=== PATIENT | male | born 1990 | race Caucasian/White ===

== ENCOUNTER → 2017-12-02 | Outpatient (CLI) | payer OTHER | LOC: LAB.O 19:31 | PROVIDERS: ATTEND Emergency Medicine | DX: R10.9 Unspecified abdominal pain (principal) ==

== ENCOUNTER → 2017-12-23 | Outpatient (CLI) | payer OTHER ==
--- NOTE | 2017-12-23 15:06 | RAD ---
EXAM DESCRIPTION: Knee,Right Complete CLINICAL HISTORY: 27 years, Male, KNEE PAIN COMPARISON: None TECHNIQUE: Four views of the right knee FINDINGS: No fracture or dislocation. Bones appear normally mineralized with normal trabecular pattern. Oblique view shows normal tibial plateaus. Normal appearance of medial and lateral compartments on frontal view. Lateral view shows normal position of the patella. No patellar spurring or enthesopathy. No suprapatellar knee joint effusion. Normal contour of quadriceps and patellar tendons. No abnormal patellar tilt or subluxation on patellar sunrise view. IMPRESSION: Negative for fracture or dislocation. Electronically signed by: Akash Patricia MD 12/23/2017 3:05 PM CDT
--- NOTE | 2017-12-23 16:07 | RAD ---
EXAM DESCRIPTION: Pelvis CLINICAL HISTORY: HIP PAIN COMPARISON: None. IMPRESSION: Single AP supine view of the pelvis shows no evidence of acute fracture, focal bone destruction, or joint dislocation. Hip joints are unremarkable. No advanced arthrosis is seen. Electronically signed by: Andrea Diaz MD 12/23/2017 4:05 PM CDT
--- NOTE | 2017-12-23 16:39 | MRI ---
Study: MRI of the Right Knee. Indication: RUPTURE OF MEDIAL COLLATERAL LIGAMENT Technique: Multiplanar, multi sequence MRI of the right knee was obtained without intravenous contrast. Comparison: Radiographs, same day. Findings: ACL, PCL, and lateral collateral ligament complex intact. MCL is lax and bowed indicating sequela of a remote MCL sprain. No acute tear. Medial and lateral menisci intact. Grade 2 and 3 chondral thinning throughout the medial compartment noted with changes most pronounced at the central to lateral aspects of the medial femoral condyle. No high-grade chondral defect lateral compartment. Insertional quadriceps tendinosis without tear. Patellar tendon intact. Subtle grade 3 chondral fissuring and mild delamination suspected at the central aspect of the medial patellar facet. Tiny effusion. No acute fracture. Impression: Intact menisci. Remote MCL sprain. Grade 2 and mild grade 3 chondrosis throughout the medial compartment. Subtle grade 3 chondral fissuring and mild delamination at the central aspect medial patellar facet. Tiny effusion. Insertional quadriceps tendinosis. Electronically signed by: Lewis Caldera MD 12/23/2017 4:37 PM CDT
== END ==
LOC: MRI 13:00
PROVIDERS: ATTEND Emergency Medicine
DX: M23.631 Other spontaneous disruption of medial collateral ligament of right knee (principal); M94.8X6 Other specified disorders of cartilage, lower leg; M25.551 Pain in right hip

== ENCOUNTER → 2018-01-03 | Outpatient (CLI) | payer OTHER ==
--- NOTE | 2018-01-03 14:34 | MRI ---
EXAM DESCRIPTION: Lumbar Spine w/wo Contrast: Magnetic Resonance Imaging. CLINICAL HISTORY: HEADACHE COMPARISON: MR scans of the thoracic spine and cervical spine without and with gadolinium IV contrast on the same visit. TECHNIQUE: Multiplanar, MRI, multiple standard sequences, without and with 20 mL Gadolinium IV contrast, lumbar spine. No adverse reactions. FINDINGS: Minimal disc space loss at L5-S1 and minimal desiccation. No posterior bulging. Posterior elements unremarkable. Minimal bony canal narrowing. Bilateral foramina are patent. Normal contrast enhancement. L4-5: Normal signal in the disc and disc space preserved. Posterior elements unremarkable. Canal and foramina are patent. Normal contrast enhancement. L3-4: Normal signal in the disc and disc space preserved. Posterior elements are unremarkable. Canal is patent; foramina are mildly narrowed. Normal contrast enhancement. L2-3: Disc space preserved with minimal disc desiccation. No bulging. Posterior elements unremarkable. Canal and foramina are patent. Normal contrast enhancement. L1-2: Disc space preserved with minimal desiccation of the disc. Trace posterior midline bulge. Posterior elements unremarkable. Mild canal narrowing bilateral foramina are patent. Question of an early Schmorl's node in the posterior inferior L1 endplate. Normal contrast enhancement. T12-L1: Minimal concavities in the endplates. Minimal desiccation of the disc. Posterior elements unremarkable. Canal and foramina are patent. Conus terminates at L1. Normal contrast enhancement at the level of the disc space and in the cord. Vertebral bodies are not compressed at any level. Normal marrow signal in the vertebral bodies and the posterior elements. Normal Contrast enhancement. Paravertebral soft tissues are unremarkable. "Horseshoe" bilateral kidneys fused at the inferior level of the lower poles..Perivertebral contrast enhancement unremarkable. IMPRESSION: 1. Minimal desiccation of discs at some levels. Minimal loss of the disc space at L5-S1. Foraminal narrowing at some levels but no canal or foraminal stenosis. No nerve root compromise is seen. 2. Normal enhancement in the spinal elements and the distal cord. No soft tissue masses. 3. 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 Electronically signed by: Adonis Bennett MD 01/03/2018 2:33 PM CDT
--- NOTE | 2018-01-03 14:49 | MRI ---
EXAM DESCRIPTION: Cervical Spine w/wo Contrast: MRI. CLINICAL HISTORY: HEADACHE COMPARISON: Cervical TECHNIQUE: Multiplanar high-field MRI, multiple sequences, without and with gadolinium IV contrast . Cervical spine. FINDINGS: C4-5: Disc desiccation. Tiny posterior disc bulge with small bilateral uncinate spurs.. Minimal narrowing of the neural foramina. Canal is patent. Facets are negative. Normal enhancement. C6-7: Disc desiccation posterior midline 2 mm bulge not abutting the cord. Bilateral uncinate spurs with mild narrowing of the neural foramina. Mild canal narrowing. Facets are unremarkable. Normal contrast enhancement. C7-T1: Disc desiccation and tiny disc space loss. Tiny posterior bulge. Canal and bilateral neural foramina are patent. Normal facets. Normal enhancement. Normal signal in the remaining discs with no bulging. Disc spaces preserved. Canal and neural foramina are patent. Facets are negative. Normal enhancement. Spinal alignment anatomic. No cord compression or cord edema. Atlantoaxial joint is negative.. Base of the cerebellar tonsils is just above the foramen magnum. Paravertebral soft tissues unremarkable with normal enhancement. Vertebral bodies are not compressed at any level. Normal marrow signal in the vertebral bodies and the posterior elements. IMPRESSION: 1. Tiny posterior disc bulge with uncinate spurs at C4-C5. Minimal neural foraminal narrowing. Normal enhancement. 2. Posterior midline bulge C5-6. Bilateral uncinate spurs. Mild canal and neural foraminal narrowing. Normal enhancement. 3. Tiny posterior bulge of the desiccated disc at C7-T1. Canal and neural foramina are patent. Normal contrast enhancement. Electronically signed by: Adonis Bennett MD 01/03/2018 2:48 PM CDT
--- NOTE | 2018-01-03 15:10 | MRI ---
EXAM DESCRIPTION: Thoracic Spine w/wo Contrast: Magnetic Resonance Imaging. CLINICAL HISTORY: HEADACHE COMPARISON: MR scans of the lumbar spine and cervical spine without and with gadolinium IV contrast on the same visit. TECHNIQUE: Multiplanar, multiple standard sequences, without and with gadolinium IV contrast MRI, thoracic spine. Minimal image degradation on some sequences due to patient motion from fatigue. FINDINGS: Bright inversion recovery and T2 signal in the central cord canal beginning at the T3-4 disc space level and extending inferiorly to the T9-10 level. No abnormal enhancement in the central canal or the cord. The cord maintains normal caliber and otherwise normal signal. Minimal narrowing of the T8-9 and T9-T10 disc spaces with minimal desiccation of the disks. Slight narrowing of the T3-T4 disc space with normal signal in the disc. The discs are bulging. Canal and foramina are patent. Normal contrast enhancement in the spinal canal and around the spinal canal at these levels. No paravertebral soft tissue mass. Remaining discs with normal signal. Disc spaces are preserved. Canal and foramina are patent. No scoliosis. Facet joints are unremarkable. Conus terminates at L1. Paravertebral soft tissues are unremarkable. Normal contrast enhancement. Normal marrow signal in the vertebral bodies and the posterior elements. Vertebral bodies are not compressed at any level. Normal osseous contrast enhancement. IMPRESSION: 1. 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 No enhancement within the central cord. Normal enhancement of the cord with no cord enlargement or cord atrophy. No mass effect on the cord. Conus terminates at L1. 2. Minimal disc desiccation at T3-T4, T8-T9, and T9-T10. Desiccation of the discs at T8-9 and T9-T10. Canal and foramina are patent. Normal contrast enhancement in the canal and in the bony and soft tissues at these levels. Remainder of examination is unremarkable. Electronically signed by: Adonis Bennett MD 01/03/2018 3:08 PM CDT
== END ==
LOC: MRI 11:00
DX: R51 Headache (principal); G95.0 Syringomyelia and syringobulbia; G62.9 Polyneuropathy, unspecified; R56.9 Unspecified convulsions; M51.34 Other intervertebral disc degeneration, thoracic region; M50.221 Other cervical disc displacement at C4-C5 level; M50.23 Other cervical disc displacement, cervicothoracic region; Q63.1 Lobulated, fused and horseshoe kidney

== ENCOUNTER → 2018-02-28 | Outpatient (CLI) | payer OTHER | LOC: LAB.O 12:51 | PROVIDERS: ATTEND Orthopaedic Surgery | DX: M25.561 Pain in right knee (principal) ==

== ENCOUNTER 2018-04-25 04:32 | Day surgery (SDC) | payer OTHER ==
--- NOTE | 2018-04-24 10:08 | HP ---
CHIEF COMPLAINT: Right knee pain. HISTORY OF PRESENT ILLNESS: Tony is a 20-year-old male with a history of right knee pain that has been going on for a very long time. He has had multiple workups which have included undergoing an MRI. He has not had relief with physical therapy or injections. Because of his ongoing pain and his lack of response to conservative measures, he has requested operative intervention. After discussing the risks, benefits and alternatives to that, he has given informed consent. PAST SURGICAL HISTORY: 1. Shoulder surgery. MEDICATIONS: None. ALLERGIES: AMOXICILLIN. CODE STATUS: Full code. IMMUNIZATIONS: Up to date. FAMILY HISTORY: None pertinent to today's complaint. SOCIAL HISTORY: The patient does not drink, smoke or use any illicit drugs. REVIEW OF SYSTEMS: Negative except as indicated in the History of Present Illness. PHYSICAL EXAMINATION: VITAL SIGNS: Blood pressure 135/100. Pulse 62. Height 5'7". Weight 186 pounds. MENTAL STATUS: The patient is awake, alert, and is able to give a good history and participate in the physical. The patient is oriented to person, place and time. SKIN: Normal tone and turgor. MUSCULOSKELETAL: He is very tender to palpation on the medial aspect of the knee and also on the medial femoral condyle. He does have some pain with patellar mobilization. He has no significant lateral joint-line tenderness today. There is no varus/valgus or anterior/posterior laxity. There is no overall malalignment. IMAGING: X-rays do not demonstrate any acute bony abnormality. He does have an MRI also and it is somewhat unremarkable for tearing of the meniscus. He does, however, state he is having mechanical symptoms. ASSESSMENT: 1. Knee pain. PLAN: We have talked about risks, benefits and alternatives to operative therapy and we have talked about the fact that given his negative findings on studies at this point, we are somewhat uncertain of the exact etiology and to that end, this would be both diagnostic and therapeutic in nature. We have discussed the risks, benefits, and alternatives to that and the patient has given informed consent for knee arthroscopy. #[id number] [facility]
[2018-04-25] MEDS ORDERED: SODIUM CHL 0.9% 100ML MINI-BAG 100 ML IVPB ONE (05:49)
[2018-04-25] MEDS ORDERED: ceFAZolin SODIUM 1 GM VIAL ONE ×3 (05:50→06:38)
[2018-04-25] MEDS ORDERED: LACTATED RINGERS 1,000 ML ONE (05:50)
[2018-04-25] MEDS ORDERED: BUPIVACAINE LIPOSOME 13.3 MG/ML VIAL INJ ONE (06:34)
[2018-04-25] MEDS ORDERED: VANCOMYCIN HCL INJ 1,000 MG VIAL IVPB ONE (06:34)
[2018-04-25] MEDS ORDERED: BUPIVACAINE 0.5% 30 ML VIAL INJ ONE (06:34)
[2018-04-25] MEDS: MIDAZOLAM INJ 5 MG/5 ML VIAL ONE ×2 (06:37→07:05)
[2018-04-25] MEDS ORDERED: fentaNYL CITRATE INJ 50 MCG/ML AMP ONE (06:45)
[2018-04-25] MEDS ORDERED: ACETAMINOPHEN IV 1000MG 100 ML ONE (07:20)
[2018-04-25] MEDS: HYDROmorphone HCL INJ 2 MG/ML VIAL ONE ×3 (08:32→08:52)
[2018-04-25] MEDS ORDERED: ONDANSETRON INJ 4 MG/2 ML VIAL ONE (08:35)
--- NOTE | 2018-04-25 08:52 | OP ---
DATE OF PROCEDURE: 04/25/18 PREOPERATIVE DIAGNOSIS: 1. Right knee pain. POSTOPERATIVE DIAGNOSIS: 1. Chondromalacia of the right knee. PROCEDURE: 1. Debridement. SURGEON: Johann Carlos MD. WASHER AND CAPPER MACHINE OPERATOR: Adonis Ballard CST, SA-C. ANESTHESIA: General anesthesia. COMPLICATIONS: None. FINDINGS: 1. Approximately 12 mm area on the medial femoral condyle with fibrillation and fissuring of the cartilage. 2. Normal medial meniscus. 3. Normal tibial plateau. 4. Normal anterior cruciate ligament, normal posterior cruciate ligament. 5. Normal lateral compartment. 6. Normal lateral gutter. 7. Normal suprapatellar pouch. 8. Normal patellofemoral joint. 9. Normal medial gutter. INDICATION: Tony has a long history of pain in the knee. He has had multiple interventions which have included injections, anti-inflammatories, physical therapy, activity modification, bracing and has failed to gain relief. Because of his ongoing discomfort, he has requested operative intervention. After discussing the risks, benefits and alternatives to that, the patient has given informed consent for arthroscopy. PROCEDURE: The patient was brought to the Operating Room and placed in supine position. General anesthesia was induced and the patient's leg was sterilely prepped and draped. Following prepping and draping, standard anteromedial and anterolateral portals were established. Diagnostic arthroscopy was carried out with the above findings. Attention was then focused on the defect of the medial femoral condyle. A 3.5 mm full radius shaver was used to debride the fibrillations and it was thoroughly probed to ensure stable base at the chondral damage. Once debridement had been completed, the knee was very thoroughly irrigated and then drained. Following draining of the knee, the wounds were closed with Nylon suture. Sterile dressings were placed. The patient was awoken from anesthesia and taken to Recovery. POSTOPERATIVE PLAN: The patient will be non-weightbearing and will followup with us in approximately two days. #[id number] [facility]
[2018-04-25] MEDS ORDERED: SODIUM CHLORIDE 0.9% 100ML 100 ML IVPB ONE (09:33)
[2018-04-25] MEDS ORDERED: PROMETHAZINE HCL INJ 25 MG/ML VIAL ONE (09:33)
[2018-04-25] MEDS ORDERED: PROPOFOL 200 MG/20 ML VIAL IV ONE (10:00)
[2018-04-25] MEDS ORDERED: LIDOCAINE 1% 10 ML VIAL INJ ONE (10:00)
[2018-04-25] MEDS ORDERED: raNITIdine HCL INJ 25 MG/ML VIAL IV ONE (10:00)
[2018-04-25] MEDS ORDERED: METOCLOPRAMIDE HCL INJ 10 MG/2 ML VIAL IV ONE (10:00)
[2018-04-25] MEDS ORDERED: KETOROLAC TROMETHAMINE INJ 30 MG/ML VIAL IV ONE (10:00)
[2018-04-25 12:56] VITALS: BP 133/77; TEMP 97.7; O2SAT 98
== END 2018-04-25 11:05 | disposition home or self-care (01) ==
LOC: AMB 04:32
PROVIDERS: ATTEND Orthopaedic Surgery
DX: M94.261 Chondromalacia, right knee (principal); I10 Essential (primary) hypertension; G47.33 Obstructive sleep apnea (adult) (pediatric); Z88.1 Allergy status to other antibiotic agents
CPT/HCPCS: 01400; 29877; 36415; 80048; 80307; 85025; 87070; 87077; 87186; J0690; J1170; J1885; J2250; J2405; J2550; J2765; J2780; J3010; J3370; J3490; J7050; J7120

== ENCOUNTER 2018-09-11 12:25 | Emergency (ER) | payer OTHER ==
--- NOTE | 2018-09-11 12:32 | ED.PDOC ---
History of Present Illness - General Chief Complaint: General Stated Complaint: headache Time Seen by Provider: 09/11/18 12:31 Source: patient Exam Limitations: no limitations - History of Present Illness Initial Comments: Tony Doll 27 y/o male came to ER with dull frontal headaches,abdominal cramps,nausea unable to to get anything down and dry cough and nose congestion for the last 2 days.Has also body aches but no diarrhea,vomiting ,SOB,no history of asthma. Timing/Duration: other - 48 hours Severity: moderate Improving Factors: nothing Worsening Factors: nothing Associated Symptoms: other - see hpi Allergies/Adverse Reactions: Allergies Amoxicillin Adverse Reaction (Verified 04/24/18 09:27) Home Medications: Ambulatory Orders Azithromycin [Zithromax Z-Lui] 250 mg PO DAILY 6 Days #6 tab 09/11/18 Promethazine W/Codeine Syr [Phenergan With Codeine Syrup] 10 ml PO TID #120 ud 09/11/18 Review of Systems - Review of Systems Constitutional: States: malaise EENTM: States: no symptoms reported Respiratory: States: cough Cardiology: States: no symptoms reported Gastrointestinal/Abdominal: States: see HPI All other Systems: Reviewed and Negative, No Change from Baseline Past Medical History (General) - Patient Medical History Hx Congestive Heart Failure: No Hx Diabetes: No Hx MRSA: No Hx Other PMH: Yes - PTSD Surgical History: other - back-lumbar,rotator cuff,knee Family Medical History - Family History Father Hx Family Hypertension: Yes - multiple family members Hx Family Diabetes: Yes - multiple family members Physical Exam - Physical Exam General Appearance: Alert, Comfortable, No apparent distress Eye Exam: bilateral normal Ears, Nose, Throat: hearing grossly normal, normal ENT inspection, pharyngeal erythema Neck: supple, normal inspection Respiratory: chest non-tender, lungs clear, normal breath sounds, no respiratory distress Cardiovascular/Chest: normal peripheral pulses, regular rate, rhythm, no murmur Peripheral Pulses: radial,right: 2+, radial,left: 2+ Gastrointestinal/Abdominal: non tender, soft, no organomegaly Back Exam: no CVA tenderness, no vertebral tenderness Extremity: no pedal edema, no calf tenderness Neurologic: alert, oriented x 3 Skin Exam: normal color, warm/dry Progress - Progress Progress: 09/11/18 12:49 Vital Signs - 8 hr 09/11/18 12:30 Temperature 100.3 F H Pulse Rate [ 108 H left brachial] Respiratory 24 Rate Blood Pressure 133/96 [left brachial] O2 Sat by Pulse 92 L Oximetry 09/11/18 16:08 Discuss all test results with patient stated feeling better-no longer nauseated,headache relived. - Results/Orders Results/Orders: Laboratory Tests 09/11/18 09/11/18 09/11/18 13:00 13:04 14:18 WBC 9.7 RBC 5.43 Hgb 16.7 Hct 48.0 MCV 88.4 MCH 30.8 MCHC 34.9 RDW 13.7 Plt Count 196 MPV 7.8 Absolute Neuts (auto) 6.40 Absolute Lymphs (auto) 1.60 Absolute Monos (auto) 1.60 H Absolute Eos (auto) 0.00 Absolute Basos (auto) 0.00 Neutrophils % 66.3 Lymphocytes % 16.8 L Monocytes % 16.3 H Eosinophils % 0.2 L Basophils % 0.4 PT 9.9 INR 0.99 PTT (SP) 28.9 Sodium 134 L Potassium 3.6 Chloride 97 L Carbon Dioxide 26 Anion Gap 14.6 BUN 17 Creatinine 1.37 H BUN/Creatinine Ratio 12.4 Random Glucose 104 Serum Osmolality 270.1 L Calcium 9.0 Magnesium 2.0 Total Bilirubin 1.4 H Direct Bilirubin 0.2 Indirect Bilirubin 1.2 H AST 29 ALT 41 Alkaline Phosphatase 48 Creatine Kinase 330 H* CK-MB (CK-2) 1.0 CK-MB (CK-2) % 0.30 Troponin I < 0.02 Serum Total Protein 8.2 Albumin 4.3 Lipase 30 Urine Color Urine Appearance Urine pH Ur Specific [place] Urine Protein Urine Glucose (UA) Urine Ketones Urine Blood Urine Nitrite Urine Bilirubin Urine Urobilinogen Ur Leukocyte Esterase Urine RBC Urine WBC Ur Epithelial Cells Amorphous Sediment Urine Bacteria Urine Opiates Screen Negative Urine Barbiturates Negative Ur Phencyclidine Scrn Negative U Amphetamin/Meth Scrn Negative U Benzodiazepines Scrn Negative U Cocaine Metab Screen Negative U Cannabinoids Screen Negative Group A Strep Rapid Negative 09/11/18 14:18 WBC RBC Hgb Hct MCV MCH MCHC RDW Plt Count MPV Absolute Neuts (auto) Absolute Lymphs (auto) Absolute Monos (auto) Absolute Eos (auto) Absolute Basos (auto) Neutrophils % Lymphocytes % Monocytes % Eosinophils % Basophils % PT INR PTT (SP) Sodium Potassium Chloride Carbon Dioxide Anion Gap BUN Creatinine BUN/Creatinine Ratio Random Glucose Serum Osmolality Calcium Magnesium Total Bilirubin Direct Bilirubin Indirect Bilirubin AST ALT Alkaline Phosphatase Creatine Kinase CK-MB (CK-2) CK-MB (CK-2) % Troponin I Serum Total Protein Albumin Lipase Urine Color Dk yellow Urine Appearance Clear Urine pH 6.0 Ur Specific [place] 1.025 Urine Protein 100 H Urine Glucose (UA) Negative Urine Ketones Trace Urine Blood Trace-intact H Urine Nitrite Negative Urine Bilirubin Small H Urine Urobilinogen 1.0 Ur Leukocyte Esterase Negative Urine RBC 0-1 Urine WBC 0-1 Ur Epithelial Cells 0-1 Amorphous Sediment 1+ Urine Bacteria Rare Urine Opiates Screen Urine Barbiturates Ur Phencyclidine Scrn U Amphetamin/Meth Scrn U Benzodiazepines Scrn U Cocaine Metab Screen U Cannabinoids Screen Group A Strep Rapid - EKG/XRAY/CT XRAY: chest - no acute findings Departure - Departure Clinical Impression: Upper respiratory infection Qualifiers: URI type: unspecified URI Qualified Code(s): J06.9 - Acute upper respiratory infection, unspecified Time of Disposition: 16:05 Disposition: Discharge to Home or Self Care Condition: Fair Departure Forms: ED Discharge - Pt. Copy, Patient Portal Self Enrollment Instructions: Viral Upper Respiratory Infection, Adult (DC) Diet: bland diet - until better, other - Avoid [place]/Spicy foods until better Referrals: YUDELKA PANTOJA [Primary Care Provider] - 1-2 Weeks Prescriptions: Azithromycin [Zithromax Z-Lui] 250 mg PO DAILY 6 Days #6 tab Promethazine W/Codeine Syr [Phenergan With Codeine Syrup] 10 ml PO TID #120 ud Home Medications: Ambulatory Orders Azithromycin [Zithromax Z-Lui] 250 mg PO DAILY 6 Days #6 tab 09/11/18 Promethazine W/Codeine Syr [Phenergan With Codeine Syrup] 10 ml PO TID #120 ud 09/11/18 Additional Instructions: May take over the counter Tylenol 500mg one tablet every 6 hours for fever;Return to emergency room as needed;follow up with primary Md 15 September 2018 for recheck
[2018-09-11] MEDS ORDERED: KETOROLAC TROMETHAMINE INJ 30 MG/ML VIAL IV ONE (12:33)
[2018-09-11] MEDS ORDERED: LACTATED RINGERS 1,000 ML IVS ONE (12:33)
[2018-09-11] MEDS ORDERED: PROCHLORPERAZINE INJ 10 MG/2 ML VIAL IV ONE (12:33)
[2018-09-11] MEDS ORDERED: DEXAMETHASONE INJ 4 MG/ML VIAL IV ONE (12:50)
--- NOTE | 2018-09-11 13:33 | RAD ---
PROCEDURE: XR Chest, 1 View CLINICAL INDICATION: The patient is 27 years old and is Male; pain TECHNIQUE: Frontal view of the chest. COMPARISON: No relevant prior studies available. FINDINGS: LUNGS: Unremarkable. No consolidation. PLEURAL SPACE: Unremarkable. No pneumothorax. HEART: Unremarkable. No cardiomegaly. MEDIASTINUM: Unremarkable. BONES/JOINTS: Unremarkable.No acute fracture noted. IMPRESSION: No active disease is seen in the chest. Electronically signed by: Jesus Ivey MD 09/11/2018 1:31 PM CDT
[2018-09-11] MEDS ORDERED: HYDROcodone 10MG/APAP 325MG 1 EA TAB PO ONE (14:12)
[2018-09-11] MEDS ORDERED: AZITHROMYCIN IV 500 MG in SODIUM CHLORIDE 0.9% 250ML 250 ML IVPB ONE (14:12)
[2018-09-11] MEDS ORDERED: AZITHROMYCIN IV 500 MG VIAL IVPB ONE (14:14)
[2018-09-11] MEDS ORDERED: SODIUM CHLORIDE 0.9% 250ML 250 ML ONE (14:14)
[2018-09-11] MEDS ORDERED: SODIUM CHLORIDE 0.9% 500ML 500 ML IVS ONE (14:17)
[2018-09-11 17:12] VITALS: BP 116/74; TEMP 98.5; O2SAT 93
== END 2018-09-11 16:50 | disposition home or self-care (01) ==
LOC: ER 12:25
DX: J06.9 Acute upper respiratory infection, unspecified (principal); R10.9 Unspecified abdominal pain; R11.0 Nausea; F43.10 Post-traumatic stress disorder, unspecified; Z88.1 Allergy status to other antibiotic agents
CPT/HCPCS: 36415; 71045; 80048; 80076; 80307; 81001; 82550; 82553; 83690; 84484; 85025; 85610; 85730; 87070; 87880; J0456; J0780; J1100; J1885; J7040; J7050; J7120

== ENCOUNTER → 2019-05-19 | Outpatient (CLI) | payer OTHER | DX: M23.8X1 Other internal derangements of right knee (principal); M76.891 Other specified enthesopathies of right lower limb, excluding foot; M94.8X6 Other specified disorders of cartilage, lower leg; M25.461 Effusion, right knee ==